=== PATIENT | female | born 1980 | race Caucasian/White ===

== ENCOUNTER → 2017-11-21 | Outpatient (CLI) | payer BC ==
--- NOTE | 2017-11-21 17:26 | Diagnostic Imaging Report ---
INDICATION: survey. TECHNIQUE: Multiple real-time grayscale images were obtained over the gravid uterus. COMPARISON: No prior examinations are available for comparison. FINDINGS: There is a single living intrauterine in a variable presentation. The biometry correlates with a gestational age of 20 weeks 1 day. There is normal volume of amniotic fluid. Placenta is fundal. There is no previa. The heart rate is 165 beats per minute. The anatomical survey is unremarkable. This includes a four-chamber heart and three-vessel cord. Cervical length is 4.3 cm. Maternal adnexa is unremarkable. IMPRESSION: Single living intrauterine with a sonographically estimated gestational age of 20 weeks 1 day and estimated date of confinement is April 09, 2018. Biometrical measurements are as follows: Biparietal 4.65 cm, age 20 weeks 1 days. Head circumference 16.47 cm, age 19 weeks 2 days. Abdominal circumference 14.83 cm, age 20 weeks 1 days. Femur length 3.47 cm, age 21 weeks 0 days. Sonographic estimate age: 20 weeks 1 days. Sonographic estimated date of delivery: 04/09/2018. Estimated Weight: 348 gm (+/- 51 gm). LMP percentile: 57%. heart rate: 165 beats per minute. number: 1 of 1. Dictated by: Dictated on workstation # [id number]
== END ==
LOC: RAD 16:08
PROVIDERS: ATTEND Obstetrics & Gynecology
DX: Z36.89 Encounter for other specified antenatal screening (principal); Z3A.20 20 weeks gestation of pregnancy
CPT/HCPCS: 76805

== ENCOUNTER 2018-03-30 14:45 | Outpatient (CLI) | payer BC ==
[~2018-03-30] VITALS: Ht 157.5 cm; Wt 92.6 kg
[2018-03-30 14:50] VITALS: BP 130/78
[2018-03-30 15:43] LABS: BILIRUBIN,URINE NEGATIVE (NEGATIVE); CLARITY,URINE SLIGHTLY CLOUDY; COLOR,URINE YELLOW; GLUCOSE, URINE (UA) NEGATIVE (NEGATIVE); KETONES,URINE NEGATIVE (NEGATIVE); LEUKOCYTE ESTERASE ,URINE 1+ (NEGATIVE); NITRITE,URINE NEGATIVE (NEGATIVE); PH,URINE 6 (5-9); PROTEIN,URINE NEGATIVE (NEGATIVE); UROBILINOGEN,URINE NORMAL (NORMAL)
[2018-03-30 15:44] LABS: BACTERIA,URINE MODERATE /HPF
[2018-03-30] MEDS ORDERED: CEPH-507 PO (16:13)
[2018-04-02] MEDS ORDERED: DOCU100C37 PO (13:43)
[2018-04-02] MEDS ORDERED: Benzocaine/Menthol TP (13:43)
[2018-04-02] MEDS ORDERED: IBUP-844 PO (13:43)
[2018-04-02] MEDS ORDERED: ACHD5005 PO (13:43)
--- NOTE | 2018-04-03 22:16 | Physician Query-Final Dx ---
BEULAH MCARTHUR 04/03/18 2216: Clinic Account Progress/Dx Physician Query: Please give diagnosis Please provide diagnosis and weeks of gestation. Date of Service Mar 30, 2018 at 14:45 KIRSTY DURAN DO 04/05/18 0843: Clinic Account Progress/Dx DIAGNOSIS: Diagnosis PP NVD BEULAH MCARTHUR Apr 03, 2018 22:16 KIRSTY DURAN DO Apr 05, 2018 08:43
== END 2018-03-30 16:30 | disposition home or self-care (01) ==
LOC: WSo 14:45 → LDRP 14:45 → WSo 16:30
PROVIDERS: ATTEND Obstetrics & Gynecology
DX: O99.89 Other specified diseases and conditions complicating pregnancy, childbirth and the puerperium (principal); R11.2 Nausea with vomiting, unspecified; R19.7 Diarrhea, unspecified; Z3A.00 Weeks of gestation of pregnancy not specified
CPT/HCPCS: 81000; 87088; 99214

== ENCOUNTER 2018-04-01 01:47 | Inpatient (IN) | payer BC ==
[2018-04-01] VITALS (47 sets, daily range): BP systolic 110–177; BP diastolic 52–103
[~2018-04-01] VITALS: Ht 157.5 cm; Wt 90.3 kg
[~2018-04-01 01:47] MED LIST: CEPH-507 PO
[2018-04-01] MEDS ORDERED: D5 LR IV SOLUTION 1,000 ML IV ONE (06:32)
[2018-04-01] MEDS ORDERED: SUFENTA 0.6MCG/ML BUPIVA 0.125 100 ML ONE (06:32)
[2018-04-01] MEDS ORDERED: D5 LR IV SOLUTION 1,000 ML IV SCH (06:35)
[2018-04-01 06:44] LABS: BILIRUBIN,URINE NEGATIVE (NEGATIVE); CLARITY,URINE SLIGHTLY CLOUDY; COLOR,URINE YELLOW; GLUCOSE, URINE (UA) NEGATIVE (NEGATIVE); KETONES,URINE 2+ (NEGATIVE); LEUKOCYTE ESTERASE ,URINE 3+ (NEGATIVE); NITRITE,URINE NEGATIVE (NEGATIVE); PH,URINE 6 (5-9); PROTEIN,URINE NEGATIVE (NEGATIVE); UROBILINOGEN,URINE NORMAL (NORMAL)
[2018-04-01 06:44] LABS: BASOPHILS % (AUTO) 0 % (0-10); EOSINOPHILS % (AUTO) 0 % (0-10); HEMATOCRIT 40 % (35-52); HEMOGLOBIN 14.1 G/DL (11.5-16.0); LYMPHOCYTES # (AUTO) 1.8 X 10^3 (1.0-4.0); LYMPHOCYTES % (AUTO) 8 % (12-44); MEAN CORPUSCULAR HEMOGLOBIN 32 PG (25-34); MEAN CORPUSCULAR HGB CONC 36 G/DL (32-36); MEAN CORPUSCULAR VOLUME 90 FL (80-99); MEAN PLATELET VOLUME 12.3 FL (7.4-10.4); MONOCYTES # (AUTO) 0.8 X 10^3 (0.0-1.0); MONOCYTES % (AUTO) 4 % (0-12); NEUTROPHILS # (AUTO) 19.5 X 10^3 (1.8-7.8); NEUTROPHILS % (AUTO) 88 % (42-75); PLATELET COUNT 217 10^3/uL (130-400); RED BLOOD COUNT 4.39 10^6/uL (4.35-5.85); RED CELL DISTRIBUTION WIDTH 14.2 % (10.0-14.5); WHITE BLOOD COUNT 22.1 10^3/uL (4.3-11.0)
[2018-04-01] MEDS ORDERED: MINERAL OIL CONCENTRATE 99.9% 15 ML UDC TOP PRN (06:45)
[2018-04-01] MEDS ORDERED: BUPIVACAINE 0.25% 30 ML (SENSORCAINE) VIAL ONE (06:58)
[2018-04-01] MEDS ORDERED: fentaNYL INJECTION 100 MCG/2 ML AMP ONE (06:58)
[2018-04-01] MEDS ORDERED: LIDOCAINE PF 2% 5 ML (XYLOCAINE) VIAL ONE (07:01)
[2018-04-01 07:05] LABS: BACTERIA,URINE LARGE /HPF; SQUAMOUS EPITHELIAL CELL,UR 0-2 /HPF; WBC,URINE 25-50 /HPF
[2018-04-01] MEDS ORDERED: LACTATED RINGERS 1,000 ML IV ONE ×2 (07:10)
[2018-04-01] MEDS ORDERED: ONDANSETRON 4 MG/2 ML (SDV) Z0FRAN IV PRN (07:15)
[2018-04-01] MEDS ORDERED: NALOXONE 0.4 MG/ML 1 ML (NARCAN) VIAL IV PRN (07:15)
[2018-04-01] MEDS ORDERED: EPIDURAL (SUFENTA 0.6MCG/ML BUPIVA 0.125%) 100 ML BAG EPI PRN (07:15)
[2018-04-01] MEDS ORDERED: LIDOCAINE/EPI 2% 1:200,00 (XYLOCAINE) 10 ML VIAL ONE (09:04)
[2018-04-01] MEDS ORDERED: OXYTOCIN/NORMAL SALINE 500 ML IV ONE (09:04)
--- NOTE | 2018-04-01 09:30 | History & Physical-OB ---
OB - Chief Complaint & HPI Date/Time Date of Admission: Date of Admission: Apr 01, 2018 at 6:33 am Time Seen by Provider: 08:30 Chief Complaint/History OB-Reason for Admission/Chief: Onset of Labor Hx : 1 Hx Para: 0 Expected Date of Delivery: Apr 09, 2018 Gestational Age in Weeks: 38 Gestational Age in Days: 6 Other reason for admission: Active labor Admission Nurse Assessment Rev: Yes History of Labs O neg Antibody neg RI RPR NR HBsAg NR HIV NR GC neg GBS neg Allergies and Home Medications Allergies Coded Allergies: erythromycin base (Verified Allergy, Unknown, 03/30/18) sulfamethoxazole (Verified Allergy, Unknown, 03/30/18) trimethoprim (Verified Allergy, Unknown, 03/30/18) Home Medications Cephalexin 500 Mg Capsule, 500 MG PO QID Prescribed by: JANICE FRIAS on 03/30/18 1613 Patient Home Medication List Home Medication List Reviewed: Yes OB - History Hx of Present Care: Yes Ultrasounds: Normal mid trimester US Obstetrical Complications: None Medical Complications: None Obstetrical History Hx : 1 Delivery History Adverse Rxn to Tranfusion: No Patient Past Medical History myotonia congenita Social History/Family History Recent Infectious Disease Expo: No Alcohol Use: Denies Use Recreational Drug Use: No Immunizations Hepatitis A: Yes Hepatitis B: Yes OB - Admission Exam Physical Exam Vitals: Vital Signs 04/01/18 04/01/18 04/01/18 03:00 04:00 07:00 Temp 98.4 Pulse 86 Resp 18 B/P (MAP) 129/66 (87) Pulse Ox 97 O2 Delivery Room Air HEENT: NCAT Heart: Rhythm Normal Lungs: Clear Abdomen: Gravid Extremities: Normal Reflexes: Normal Cervical Dilatation: 6cm Effacement: 75% Station: -1 Membranes: Intact Heart Rate: 130's Accelerations: Accelerations Present Decelerations: No Decelerations Short Term Variability: Present Care Home Variability: Average (6-25) Contractions on Admission: 6-10 Minutes Apart Intensity: Firm Labs Laboratory Tests Test 04/01/18 04:10 04/01/18 06:32 Range/Units White Blood Count 22.1 H 4.3-11.0 10^3/uL Red Blood Count 4.39 4.35-5.85 10^6/uL Hemoglobin 14.1 11.5-16.0 G/DL Hematocrit 40 35-52 % Mean Corpuscular Volume 90 80-99 FL Mean Corpuscular Hemoglobin 32 25-34 PG Mean Corpuscular Hemoglobin Concent 36 32-36 G/DL Red Cell Distribution Width 14.2 10.0-14.5 % Platelet Count 217 130-400 10^3/uL Mean Platelet Volume 12.3 H 7.4-10.4 FL Neutrophils (%) (Auto) 88 H 42-75 % Lymphocytes (%) (Auto) 8 L 12-44 % Monocytes (%) (Auto) 4 0-12 % Eosinophils (%) (Auto) 0 0-10 % Basophils (%) (Auto) 0 0-10 % Neutrophils # (Auto) 19.5 H 1.8-7.8 X 10^3 Lymphocytes # (Auto) 1.8 1.0-4.0 X 10^3 Monocytes # (Auto) 0.8 0.0-1.0 X 10^3 Eosinophils # (Auto) 0.0 0.0-0.3 10^3/uL Basophils # (Auto) 0.0 0.0-0.1 10^3/uL Urine Color YELLOW Urine Clarity SLIGHTLY CLOUDY Urine pH 6 5-9 Urine Specific [place] 1.020 1.016-1.022 Urine Protein NEGATIVE NEGATIVE Urine Glucose (UA) NEGATIVE NEGATIVE Urine Ketones 2+ H NEGATIVE Urine Nitrite NEGATIVE NEGATIVE Urine Bilirubin NEGATIVE NEGATIVE Urine Urobilinogen NORMAL NORMAL MG/DL Urine Leukocyte Esterase 3+ H NEGATIVE Urine RBC (Auto) 4+ H NEGATIVE Urine RBC 5-10 H /HPF Urine WBC 25-50 H /HPF Urine Squamous Epithelial Cells 0-2 /HPF Urine Crystals NONE /LPF Urine Bacteria LARGE H /HPF Urine Casts NONE /LPF Urine Mucus NEGATIVE /LPF Urine Culture Indicated YES OB - Assessment/Plan/Diagnosis Assessment Assessment: active labor Admission Dx 37 yo @ 38.6 Active labor GBS neg Admission Status: Inpatient Order (span 2 midnights) Reason for Inpatient Admission: 37 yo @ 38.6 Active labor GBS neg Plan Plan: Expectant Management Other Plan AROM and Pitocin started this am after patient noted to make change from 4 to 6cm. KIRSTY DURAN DO Apr 01, 2018 9:30 am
[2018-04-01] MEDS ORDERED: OXYTOCIN/NORMAL SALINE 500 ML IV SCH ×3 (09:32→12:41)
[2018-04-01] MEDS ORDERED: WITCH HAZEL(TUCKS) 40 EA JAR TOP PRN (12:45)
[2018-04-01] MEDS ORDERED: MEASLES,MUMPS,RUBELLA 1 EA INJ SQ ONE (12:45)
[2018-04-01] MEDS ORDERED: HYDROcodone/APAP 5 MG/325 MG (LORTAB) TAB PO PRN (12:45)
[2018-04-01] MEDS ORDERED: BENZOCAINE/MENTHOL (DERMOPLAST) 56 ML CAN TP PRN (12:45)
[2018-04-01] MEDS ORDERED: TETANUS,DIPTH,PERTUSS P/F (BOOSTRIX) 0.5 ML VIAL IM ONE (12:45)
--- NOTE | 2018-04-01 13:29 | OB Labor & Delivery Record ---
L&D History Date of Service Date of Service: Apr 01, 2018 History Expected Date of Delivery: Apr 09, 2018 Gestational Age in Weeks: 38 Hx : 1 Hx Para: 0 Complications Events: Routine care Operative Indications (Cesarea: N/A-Vaginal Delivery Intrapartal Events: None L&D Stage1 Stage One Onset of Labor - Date: Apr 01, 2018 Monitors and Tracing Monitor Mode: External Heart Rate: 145 Station: -2 Vital Signs VS - Last 72 Hours, by Label 04/01/18 04/01/18 04/01/18 04/01/18 03:00 04:00 05:00 06:00 Temp 98.4 Pulse 78 86 Resp 18 18 18 18 B/P (MAP) 129/66 (87) Pulse Ox 97 O2 Delivery Room Air Room Air Room Air Room Air 04/01/18 07:00 Resp 18 B/P (MAP) O2 Delivery Room Air Rupture of Membranes Spontaneous Ruture of Membrane: No Amniotic Membrane Rupture Time: 08:45 Amniotic Membrane Fluid Desc.: Clear Amniotic Fluid Membrane Tests: Nitrazine Positive Vaginal Bleeding Description: Normal Show Induction/Anesthesia Epidural Cath Placement - Time: 727 L&D Stage2 Stage Two Stage II Date: Apr 01, 2018 Monitors and Tracing Monitor Mode: External Heart Rate: 145 Monitor Decelerations: Variable Fci Variability: Average (6-10) Short Term Variability: Present Position: Right Occiput Anterior Delivery Type Infant Delivery Method: Spontaneous Vaginal Episiotomy/Perineal Laceration Laceraction(s)/Extensions: Yes Episiotomy Description: Midline Degree (describe repair) Midline first-degree laceration repaired using 3-0 rapide in usual fashion Condition of Delivery 1 minute Comment: 8 5 minute Comment: 9 Notes live female infant weight 5lb 10 oz Condition of Infant Condition of Infant: Living Exam: No Observed Abnormalities Resuscitation Resuscitation: N/A - Spontaneous Resp L&D Stage3 Stage Three Stage III Date: Apr 01, 2018 Pictocin The limit this cord insertion resulted in cord avulsion. Manual extraction the placenta had to be performed. Uterus became firm after this and 30 milliunits of Pitocin was initiated wide open Placenta Delivery Placenta Delivery: Spontaneous Delivery Summary Summary Estimated blood loss (mL): 300 Attending at delivery: Kirsty Duran DO Condition of Delivery Examined: Cervix Examined, Uterus Explored Post Hemorrhage: No Condition of Mother Stable Condition of (s) Stable KIRSTY DURAN DO Apr 01, 2018 1:29 pm
[2018-04-01] MEDS: IBUPROFEN 600 MG (MOTRIN) TAB PO SCH ×2 (13:58→20:52)
[2018-04-01] MEDS ORDERED: CATHETER FLUSH 10 ML SYR IV SCH ×2 (14:00)
[2018-04-01] MEDS: DOCUSATE SODIUM 100 MG (COLACE) CAP PO SCH (20:52)
[2018-04-02 00:05] VITALS: BP 115/68
[2018-04-02] MEDS: IBUPROFEN 600 MG (MOTRIN) TAB PO SCH ×3 (02:40→13:47)
[2018-04-02 06:09] LABS: BASOPHILS % (AUTO) 0 % (0-10); EOSINOPHILS # (AUTO) 0.1 10^3/uL (0.0-0.3); EOSINOPHILS % (AUTO) 1 % (0-10); HEMATOCRIT 37 % (35-52); HEMOGLOBIN 12.7 G/DL (11.5-16.0); LYMPHOCYTES # (AUTO) 3.6 X 10^3 (1.0-4.0); LYMPHOCYTES % (AUTO) 20 % (12-44); MEAN CORPUSCULAR HEMOGLOBIN 31 PG (25-34); MEAN CORPUSCULAR HGB CONC 34 G/DL (32-36); MEAN CORPUSCULAR VOLUME 92 FL (80-99); MEAN PLATELET VOLUME 11.6 FL (7.4-10.4); MONOCYTES # (AUTO) 1.4 X 10^3 (0.0-1.0); MONOCYTES % (AUTO) 8 % (0-12); NEUTROPHILS # (AUTO) 13.2 X 10^3 (1.8-7.8); NEUTROPHILS % (AUTO) 72 % (42-75); PLATELET COUNT 188 10^3/uL (130-400); RED BLOOD COUNT 4.05 10^6/uL (4.35-5.85); RED CELL DISTRIBUTION WIDTH 14.5 % (10.0-14.5); WHITE BLOOD COUNT 18.5 10^3/uL (4.3-11.0)
[2018-04-02 08:09] VITALS: BP 97/62
[2018-04-02] MEDS: DOCUSATE SODIUM 100 MG (COLACE) CAP PO SCH (08:13)
--- NOTE | 2018-04-02 12:10 | Anesthesia-Regional Post-Op ---
Regional Patient Condition Mental Status: Alert, Oriented x3 Circulation: Same as Pre-Op Headache: Absent Sensation: Full Recovery Motor Block: Absent Post Op Complications Complications None Follow Up Care/Instructions Patient Instructions None needed. Anesthesia/Patient Condition Patient is doing well, no complaints, stable vital signs, no apparent adverse anesthesia problems. No complications reported per nursing. RALPH GARCIA CRNA Apr 02, 2018 12:10
--- NOTE | 2018-04-02 13:42 | Postpartum Progress Note ---
Note Note Day # 1 Subjective: Patient is without complaints. Ambulating, voiding. Tolerating a regular diet without nausea or vomiting. Normal lochia. Pain is well controlled with oral pain medications. Objective: Vital Sign - Last 24 Hours 04/01/18 04/01/18 04/01/18 04/01/18 13:53 14:04 14:08 14:23 Temp 98.5 Pulse 100 77 78 Resp 18 16 16 B/P (MAP) 132/73 (92) 125/66 (85) 112/56 (74) O2 Delivery Room Air Room Air Room Air 04/01/18 04/01/18 04/01/18 04/01/18 14:38 14:53 16:25 20:51 Temp 98.4 99.1 98.5 Pulse 86 85 78 87 Resp 16 16 16 20 B/P (MAP) 127/75 (92) 110/63 (79) 113/68 (83) 135/84 (101) Pulse Ox 97 100 O2 Delivery Room Air Room Air Room Air Room Air 04/02/18 04/02/18 04/02/18 00:05 04:30 08:09 Temp 97.7 97.8 97.3 Pulse 77 70 73 Resp 18 16 16 B/P (MAP) 115/68 (84) 97/62 (74) Pulse Ox 98 97 98 O2 Delivery Room Air Room Air Room Air Intake and Output 04/01/18 04/01/18 04/02/18 15:00 23:00 07:00 Intake Total 1000 ml Balance 1000 ml Physical Exam: General - Alert and oriented, no apparent distress Abdomen - Soft, appropriately tender to palpation, non-distended, fundus firm at umbilicus Extremities - no edema, negative Daysi's bilaterally Assessment: PPD 1 NVD Plan: Routine care. Encourage breast feeding. Encourage ambulation. Ferrous sulfate supplementation. Plan for discharge tomorrow Vitals - Labs Vital Signs - I&O Vital Signs Date Time Temp Pulse Resp B/P (MAP) Pulse Ox O2 Delivery O2 Flow Rate FiO2 04/02/18 08:09 97.3 73 16 97/62 (74) 98 Room Air 04/02/18 04:30 97.8 70 16 97 Room Air 04/02/18 00:05 97.7 77 18 115/68 (84) 98 Room Air 04/01/18 20:51 98.5 87 20 135/84 (101) 100 Room Air 04/01/18 16:25 99.1 78 16 113/68 (83) 97 Room Air 04/01/18 14:53 98.4 85 16 110/63 (79) Room Air 04/01/18 14:38 86 16 127/75 (92) Room Air 04/01/18 14:23 78 16 112/56 (74) Room Air 04/01/18 14:08 77 16 125/66 (85) Room Air 04/01/18 14:04 98.5 04/01/18 13:53 100 18 132/73 (92) Room Air I & O 04/02/18 07:00 Intake Total 1000 ml Balance 1000 ml Labs Laboratory Tests 04/02/18 05:53: White Blood Count 18.5H, Red Blood Count 4.05L, Hemoglobin 12.7, Hematocrit 37, Mean Corpuscular Volume 92, Mean Corpuscular Hemoglobin 31, Mean Corpuscular Hemoglobin Concent 34, Red Cell Distribution Width 14.5, Platelet Count 188, Mean Platelet Volume 11.6H, Neutrophils (%) (Auto) 72, Lymphocytes (%) (Auto) 20 , Monocytes (%) (Auto) 8, Eosinophils (%) (Auto) 1, Basophils (%) (Auto) 0, Neutrophils # (Auto) 13.2H, Lymphocytes # (Auto) 3.6, Monocytes # (Auto) 1.4H, Eosinophils # (Auto) 0.1, Basophils # (Auto) 0.0 KIRSTY DURAN DO Apr 02, 2018 1:42 pm
[2018-04-02] MEDS ORDERED: Benzocaine/Menthol TP (13:43)
[2018-04-02] MEDS ORDERED: DOCU100C37 PO (13:43)
[2018-04-02] MEDS ORDERED: IBUP-844 PO (13:43)
[2018-04-02] MEDS ORDERED: ACHD5005 PO (13:43)
--- NOTE | 2018-04-02 13:44 | Discharge Inst-Women's Service ---
Discharge Inst-Women's Serv Depart Medication/Instructions New, Converted or Re-Newed RX: RX on Chart Consults/Follow Up Additional Follow Up: Yes Orders/Referrals Dr. Duran in 6 weeks Activity Activity: Activity as Tolerated Driving Instructions: No Driving for 1 Week NO SMOKING: NO SMOKING Nothing Inside Vagina: No Douching, No [place], No Tampons Diet Discharge Diet: No Restrictions Symptoms to Report to : Bleeding Excessive, Pain Increased, Fever Over 101 Degrees F, Vaginal Bleeding Increase, Questions/Concerns For Any Problems or Questions: Contact Your Physician Skin/Wound Care Bathing Instructions: Shower (x 2 weeks or sitz baths) KIRSTY DURAN DO Apr 02, 2018 1:44 pm
[2018-04-02 13:47] VITALS: BP 139/93
[2018-04-02] MEDS ORDERED: ONDANSETRON 8 MG (ZOFRAN) ORAL DISSOLVE TAB PO ONE (16:30)
--- NOTE | 2018-04-04 14:55 | Physician Query-Final Dx ---
FILI ENGLISH 04/04/18 1455: Final Diagnosis Give Final Diagnosis Please give Final Diagnosis KIRSTY DURAN DO 04/05/18 0844: Final Diagnosis Give Final Diagnosis PP NVD FILI ENGLISH Apr 04, 2018 14:55 KIRSTY DURAN DO Apr 05, 2018 08:44
== END 2018-04-02 17:46 | disposition home or self-care (01) | DRG 767 ==
LOC: WSo 01:47 → LDRP 01:48 → WSo 06:33 → LDRP 06:33
PROVIDERS: ADMIT Obstetrics & Gynecology; ATTEND Obstetrics & Gynecology
PROC: 0HQ9XZZ Repair Perineum Skin, External Approach (ICD-10-PCS; principal; 2018-04-01)
PROC: 10D17Z9 Manual Extraction of Products of Conception, Retained, Via Natural or Artificial Opening (ICD-10-PCS; 2018-04-01)
PROC: 10E0XZZ Delivery of Products of Conception, External Approach (ICD-10-PCS; 2018-04-01)
PROC: 0W8NXZZ Division of Female Perineum, External Approach (ICD-10-PCS; 2018-04-01)
DX: O70.0 First degree perineal laceration during delivery (principal); O69.89X0 Labor and delivery complicated by other cord complications, not applicable or unspecified; Z3A.38 38 weeks gestation of pregnancy; Z37.0 Single live birth
CPT/HCPCS: 36415; 81000; 85025; 86850; 86900; 86901; 87088; 88307; 99212